=== PATIENT | female | born 1965 | race Hispanic/Latino ===

== ENCOUNTER 2017-11-02 18:29 | Emergency (ER) | payer BC ==
[2017-11-02] MEDS ORDERED: METOPROLOL TARTRATE 1 MG/ML 5ML VIAL IV ONE ×2 (21:06→22:21)
[2017-11-02] MEDS ORDERED: CLONIDINE HCL 0.1 MG TABLET ONE ×2 (21:06→21:10)
[2017-11-02] MEDS ORDERED: NITROGLYCERIN 1GM/1 INCH PACKET TD ONE (22:21)
== END 2017-11-02 23:54 | disposition home or self-care (01) ==
LOC: EDH 18:29
DX: I10 Essential (primary) hypertension (principal); F41.9 Anxiety disorder, unspecified; Z79.899 Other long term (current) drug therapy
CPT/HCPCS: 96374; 96376; 99284; J3490 ×2; 96375

== ENCOUNTER 2019-04-23 15:26 | Emergency (ER) | payer BC, OTHER ==
[2019-04-23] MEDS ORDERED: CLONIDINE HCL 0.1 MG TABLET ONE (16:00)
== END 2019-04-23 17:44 | disposition home or self-care (01) ==
LOC: EDH 15:26
DX: I16.0 Hypertensive urgency (principal); E78.00 Pure hypercholesterolemia, unspecified; Z72.0 Tobacco use